=== PATIENT | male | born 1960 | race Caucasian/White ===

== ENCOUNTER 2017-12-30 13:02 | Observation (INO) | payer BC ==
[~2017-12-30] VITALS: Ht 180.3 cm; Wt 72.7 kg
[~2017-12-30 13:02] MED LIST: ASPIRIN81 M2 PO; ATENOLOL50 MG PO; TEKTURNA150 MG PO
[2017-12-30 13:45] LABS: BASOPHIL (%) 0.5 % (0-1); EOSINOPHIL (%) 2.3 % (0-5); EOSINOPHIL COUNT 0.2 K/uL (0-0.3); HEMATOCRIT 38.3 % (38.0-50.0); HEMOGLOBIN 12.9 G/DL (12.5-16.6); IMMATURE GRANULOCYTE (%) 0.2 % (0.0-0.7); LYMPHOCYTE (%) 33.1 % (15-42); LYMPHOCYTE COUNT 2.9 K/uL (1.0-2.8); MCH 30.1 PG (29.0-34.0); MCHC 33.7 G/DL (30.0-36.0); MCV 89.3 FL (86-99); MONOCYTE (%) 12.1 % (3-12); MONOCYTE COUNT 1.1 K/uL (0-0.8); NEUTROPHIL (%) 51.8 % (45-76); NEUTROPHIL COUNT 4.5 K/uL (1.8-6.4); PLATELET COUNT 157 K/uL (156-360); RBC DIS.WIDTH-CV 12.3 % (11.8-14.6); RBC DIS.WIDTH-SD 40.2 % (39-53); RED BLOOD COUNT 4.29 M/uL (4.00-5.50); WHITE BLOOD COUNT 8.7 K/uL (4.1-10.2)
[2017-12-30 13:57] LABS: CHLORIDE 101 mEq/L (99-109); MAGNESIUM 2.4 mg/dL (1.3-2.7); POTASSIUM 4.9 mEq/L (3.7-5.4); SODIUM 137 mEq/L (136-147)
[2017-12-30 13:58] LABS: GLUCOSE 106 mg/dL (70-99)
[2017-12-30 14:02] LABS: CREATININE 1.1 mg/dL (0.6-1.3); GFR ESTIMATE (CALCULATED) > 59 mL/min/ (58.99-99999)
[2017-12-30 14:03] LABS: UREA NITROGEN (BUN) 26 mg/dL (9-23)
[2017-12-30 14:05] LABS: CREATINE KINASE 291 IU/L (1-294)
[2017-12-30 14:06] LABS: TROP-I INTERPRETATION NEGATIVE; TROPONIN-I < 0.01 ng/mL (0.0-0.30)
[2017-12-30] MEDS ORDERED: VALSARTAN160 MG PO (14:49)
[2017-12-30] MEDS ORDERED: PREDNISOLONE AC15 ML BOTH EYES (14:50)
[2017-12-30] MEDS ORDERED: COMBIGAN O20 DROP/5 BOTH EYES (15:03)
[2017-12-30 16:13] VITALS: BP 143/63
[2017-12-30 20:00] VITALS: BP 105/59
[2017-12-30 23:09] VITALS: BP 106/53
[2017-12-31 01:21] LABS: TROP-I INTERPRETATION NEGATIVE; TROPONIN-I < 0.01 ng/mL (0.0-0.30)
[2017-12-31 04:17] VITALS: BP 114/60
[2017-12-31 06:52] LABS: CHLORIDE 107 MEQ/L (99-109); CREATININE 0.9 MG/DL (0.6-1.3); GFR ESTIMATE (CALCULATED) > 59 mL/min/ (58.99-99999); GLUCOSE 100 mg/dL (70-99); POTASSIUM 4.7 MEQ/L (3.7-5.4); SODIUM 141 MEQ/L (136-147); UREA NITROGEN (BUN) 14 mg/dL (9-23)
[2017-12-31 06:53] LABS: TROP-I INTERPRETATION NEGATIVE; TROPONIN-I < 0.01 ng/mL (0.0-0.30)
[2017-12-31 07:51] VITALS: BP 115/59
[2017-12-31 11:32] VITALS: BP 120/64
== END 2017-12-31 13:14 | disposition home or self-care (01) ==
LOC: EME → EDBD 13:02 → EDOF 15:13 → 4SOUTH 15:13 → EDOF 15:13 → ENRESERV 15:15 → 4SOUTH 16:05
PROVIDERS: Emergency Medicine; Internal Medicine
DX: R55 Syncope and collapse (principal); I95.9 Hypotension, unspecified; R00.1 Bradycardia, unspecified; I10 Essential (primary) hypertension; I49.3 Ventricular premature depolarization; Z79.82 Long term (current) use of aspirin; Z91.018 Allergy to other foods
CPT/HCPCS: 71045; 80048; 82550; 82550 91; 83735; 83880; 84484; 85025; 93005; 99281; 99284; G0378; J7030; J7040